=== PATIENT | female | born 1935 | race Caucasian/White ===

== ENCOUNTER → 2016-06-16 | Outpatient (CLI) | payer MEDICARE, BC ==
[~2016-06-16] MED LIST: AMLO10TA2 PO; CALC-1012 PO; CARV3.123 PO; CHOL200014 PO; CYAN500T2 PO; DOCU100T10 PO; LACT1CAP73 PO; LOSA1TAB96 PO; POTA10CA37 PO; PSYL660P17 PO; TAMO20TA4 PO; TRAZ-173 PO; [UNRECOGNIZED DRUG - CODE] PO
== END ==
LOC: WC.BC 11:08
PROVIDERS: ATTEND Internal Medicine Hematology & Oncology
DX: C50.512 Malignant neoplasm of lower-outer quadrant of left female breast (principal); N64.89 Other specified disorders of breast; Z08 Encounter for follow-up examination after completed treatment for malignant neoplasm; Z80.3 Family history of malignant neoplasm of breast
CPT/HCPCS: G0204; G0279

== ENCOUNTER → 2016-07-29 | Outpatient (CLI) | payer MEDICARE, BC ==
[2016-07-29 08:26] LABS: BASOPHILS % (AUTO) 0.5 % (0-2); EOSINOPHILS # (AUTO) 0.1 T/MM3 (0-0.5); EOSINOPHILS % (AUTO) 2.2 % (0-4); HCT - HEMATOCRIT 38.6 % (36-46); HGB - HEMOGLOBIN 12.7 GM/DL (12-16); LYMPHOCYTES # (AUTO) 2.2 T/MM3 (1-4.8); LYMPHOCYTES % (AUTO) 33.5 % (23-45); MEAN CORPUSCULAR HGB CONC(MCHC 32.9 GM/DL (31-37); MEAN PLATELET VOLUME 10.1 UM3 (9.4-12.4); MONOCYTES # (AUTO) 0.7 T/MM3 (0-0.8); MONOCYTES % (AUTO) 10.2 % (0-9.0); NEUTROPHILS #(AUTO)-ABSOLUTE 3.5 T/MM3 (1.8-7.7); NEUTROPHILS % (AUTO) 53.6 % (33-66); RED BLOOD COUNT 4.24 M/MM3 (4.00-5.20); WBC - WHITE BLOOD COUNT 6.5 T/MM3 (4.5-11.0)
[2016-07-29 08:38] LABS: ALBUMIN 3.7 G/DL (3.5-5.0); ALBUMIN/GLOBULIN RATIO 1.3 RATIO (1.1-2.2); ALKALINE PHOSPHATASE 48 U/L (38-126); ALT (SGPT) 28 U/L (9-52); ANION GAP 11 MEQ/L (5-15); AST (SGOT) 29 U/L (14-36); BUN/CREATININE RATIO 16 RATIO (6-26); CALCIUM 9.2 MG/DL (8.4-10.2); CHLORIDE 104 MEQ/L (98-107); CO2 - CARBON DIOXIDE 31 MEQ/L (22-30); CREATININE 0.8 MG/DL (0.7-1.2); GLOMERULAR FILTRATION RATE 69; GLUCOSE 105 MG/DL (65-110); LDH 372 U/L (313-618); POTASSIUM 3.9 MEQ/L (3.6-5); SODIUM 146 MEQ/L (134-144); TOTAL PROTEIN 6.6 G/DL (6.3-8.2)
[2016-07-29 09:34] LABS: CA 27-29 CALCULATED 26.67 U/ML (0-37.7)
== END ==
LOC: LAB 08:07
PROVIDERS: ATTEND Internal Medicine Hematology & Oncology
DX: C50.512 Malignant neoplasm of lower-outer quadrant of left female breast (principal)
CPT/HCPCS: 36415; 80053; 83615; 83735; 85025; 86300